=== PATIENT | male | born 1995 | race Hispanic/Latino ===

== ENCOUNTER 2018-09-02 19:04 | Emergency (ER) | payer MEDICAID ==
[2018-09-02] MEDS ORDERED: HYDROMORPHONE 1 MG/1 ML AMP ONE ×3 (19:26→23:01)
[2018-09-02] MEDS ORDERED: ONDANSETRON HCL 4 MG/2 ML VIAL ONE (19:26)
[2018-09-02] MEDS ORDERED: LIDOCAINE HCL 2% 20ML ONE (22:48)
== END 2018-09-02 23:32 | disposition home or self-care (01) ==
LOC: EDH 19:04
DX: S43.085A Other dislocation of left shoulder joint, initial encounter (principal); Z89.411 Acquired absence of right great toe; Z72.0 Tobacco use; W17.89XA Other fall from one level to another, initial encounter; Y93.89 Activity, other specified; Y92.89 Other specified places as the place of occurrence of the external cause; Y99.8 Other external cause status
CPT/HCPCS: 23650; 70450; 71045; 73020; 73030; 96374; 96375; 96376; 99284; J1170 ×3; J2405; J3490